=== PATIENT | female | born 1935 | race Caucasian/White ===

== ENCOUNTER 2021-04-09 08:07 | Emergency (ER) | payer MEDICARE, OTHER ==
[~2021-04-09] VITALS: Ht 157.5 cm; Wt 77.1 kg
[~2021-04-09 08:07] MED LIST: ASPI325 PO; ATOR20 PO; LEVOFLOXACIN750 MG PO; Plavix75 MG PO
[2021-04-09 09:59] LABS: Influenza A, PCR NEGATIVE (NEGATIVE); Influenza B, PCR NEGATIVE (NEGATIVE); Resp Syncytial Virus, PCR NEGATIVE (NEGATIVE); SARS-Cov-2 (COVID-19) PCR, MMC NEGATIVE (NEGATIVE)
[2021-04-09 10:20] LABS: Alanine Aminotransfer (ALT/SGP 16 U/L (12-78); Albumin, Blood 3.1 g/dL (3.4-5.0); Albumin/Globulin Ratio 0.9 (0.8-1.8); Alk Phos 70 U/L (50-136); Anion Gap 4 mmol/L (6-16); Aspartate Aminotrans (AST/SGOT 16 U/L (12-37); Bilirubin, Total 0.6 mg/dL (0.1-1.0); Blood Urea Nitrogen 28 mg/dL (8-24); Bun/Creatinine Ratio 32.4 (12.0-20.0); CO2, Blood 27 mmol/L (21-32); Chloride, Blood 112 mmol/L (98-108); Creatinine, Blood 0.86 mg/dL (0.40-1.00); Globulin, Blood 3.3 g/dL (2.2-4.0); Glomerular Filtration Rate >60 (60-); Glucose, Blood 102 mg/dL (70-99); Potassium, Blood 4.1 mmol/L (3.5-5.5); Sodium, Blood 143 mmol/L (136-145); Total Protein, Blood 6.4 g/dL (6.4-8.2); Troponin I <0.015 ng/mL (0.000-0.040)
[2021-04-09 10:28] LABS: BASOPHILS ABSOLUTE AUTO 0.03 K/mm3 (0.00-0.23); BASOPHILS PERCENT AUTO 0 % (0-2); EOSINOPHILS ABSOLUTE AUTO 0.24 K/mm3 (0.00-0.68); EOSINOPHILS PERCENT AUTO 3 % (0-6); Hematocrit 44.6 % (33.0-51.0); Hemoglobin 14.3 g/dL (11.5-16.0); IMMATURE GRAN ABSOLUTE AUTO 0.03 K/mm3 (0.00-0.10); IMMATURE GRAN PERCENT AUTO 0 % (0-1); LYMPHOCYTES ABSOLUTE AUTO 1.06 K/mm3 (0.84-5.20); LYMPHOCYTES PERCENT AUTO 15 % (21-46); MONOCYTES ABSOLUTE AUTO 0.58 K/mm3 (0.16-1.47); MONOCYTES PERCENT AUTO 8 % (4-13); Mean Corpuscular HGB Conc 32.1 g/dL (31.5-36.5); Mean Corpuscular Volume 94 fL (80-100); Mean Platelet Volume 9.6 fL (9.1-12.4); NEUTROPHILS PERCENT AUTO 73 % (41-73); Platelet Count 232 K/mm3 (150-400); RDW Coefficient Variation 13.5 % (11.7-14.2); RDW Standard Deviation 46.3 fL (35.1-46.3); Red Blood Cell Count 4.77 M/mm3 (3.80-5.20); White Blood Cell Count 7.24 K/mm3 (4.00-11.30)
[2021-04-09] MEDS ORDERED: QUET25 PO (10:37)
[2021-04-09] MEDS ORDERED: Q-Tussin100 MG/5 M PO (12:04)
== END 2021-04-09 12:40 | disposition home or self-care (01) ==
LOC: ER 08:07
PROVIDERS: Physician Assistant
DX: J06.9 Acute upper respiratory infection, unspecified (principal); Z20.822 Contact with and (suspected) exposure to COVID-19; Z87.891 Personal history of nicotine dependence; J44.9 Chronic obstructive pulmonary disease, unspecified; Z79.899 Other long term (current) drug therapy
CPT/HCPCS: 0241U; 36415; 71045; 80053; 83605; 84145; 84484; 85025; 93005; 93010; 99284-25; A9270; J7030

== ENCOUNTER 2021-08-27 12:07 | Inpatient (IN) | payer MEDICARE, OTHER ==
[~2021-08-27] VITALS: Ht 152.4 cm; Wt 70.3 kg
[~2021-08-27 12:07] MED LIST changes: -ASPI325 PO; +ASPI81CH PO; +Q-Tussin100 MG/5 M PO; +QUET25 PO
[2021-08-27 13:12] LABS: Influenza A, PCR NEGATIVE (NEGATIVE); Influenza B, PCR NEGATIVE (NEGATIVE); Resp Syncytial Virus, PCR NEGATIVE (NEGATIVE)
[2021-08-27 13:36] LABS: SARS-Cov-2 (COVID-19) PCR, MMC POSITIVE (NEGATIVE)
[2021-08-27 14:13] LABS: BASOPHILS ABSOLUTE AUTO 0.07 K/mm3 (0.00-0.23); BASOPHILS PERCENT AUTO 1 % (0-2); EOSINOPHILS ABSOLUTE AUTO 0.05 K/mm3 (0.00-0.68); EOSINOPHILS PERCENT AUTO 0 % (0-6); Hematocrit 47.1 % (33.0-51.0); Hemoglobin 14.1 g/dL (11.5-16.0); IMMATURE GRAN ABSOLUTE AUTO 0.08 K/mm3 (0.00-0.10); IMMATURE GRAN PERCENT AUTO 1 % (0-1); LYMPHOCYTES ABSOLUTE AUTO 1.07 K/mm3 (0.84-5.20); LYMPHOCYTES PERCENT AUTO 8 % (21-46); MONOCYTES ABSOLUTE AUTO 1.93 K/mm3 (0.16-1.47); MONOCYTES PERCENT AUTO 14 % (4-13); Mean Corpuscular HGB 29.4 pg (26.0-34.0); Mean Corpuscular HGB Conc 29.9 g/dL (31.5-36.5); Mean Corpuscular Volume 98 fL (80-100); Mean Platelet Volume 9.6 fL (9.1-12.4); NEUTROPHILS ABSOLUTE AUTO 11.13 K/mm3 (1.96-9.15); NEUTROPHILS PERCENT AUTO 78 % (41-73); Platelet Count 277 K/mm3 (150-400); RDW Coefficient Variation 13.5 % (11.7-14.2); RDW Standard Deviation 49.7 fL (35.1-46.3); Red Blood Cell Count 4.79 M/mm3 (3.80-5.20); White Blood Cell Count 14.33 K/mm3 (4.00-11.30)
[2021-08-27 14:32] LABS: Albumin/Globulin Ratio 0.7 (0.8-1.8); Bilirubin, Total 0.7 mg/dL (0.1-1.0); Bun/Creatinine Ratio 29.5 (12.0-20.0); Calcium, Blood 9.6 mg/dL (8.5-10.1); Creatinine, Blood 1.22 mg/dL (0.40-1.00); Globulin, Blood 4.5 g/dL (2.2-4.0); Potassium, Blood 4.5 mmol/L (3.5-5.5); Total Protein, Blood 7.5 g/dL (6.4-8.2)
--- NOTE | 2021-08-28 05:44 | NUR ---
PT IS CONFUSED, INCONTINENT T/O SHIFT. 2 ASSIST TO BSC. 2LN/C WHEN AWAKE, 4L VIA N/C WHEN ASLEEP TO MAINTAIN SATS GREATER THAN 90%.BIOX MONITOR.
[2021-08-28 07:58] LABS: BASOPHILS ABSOLUTE AUTO 0.02 K/mm3 (0.00-0.23); BASOPHILS PERCENT AUTO 0 % (0-2); EOSINOPHILS PERCENT AUTO 0 % (0-6); Hematocrit 40.1 % (33.0-51.0); Hemoglobin 12.4 g/dL (11.5-16.0); IMMATURE GRAN ABSOLUTE AUTO 0.04 K/mm3 (0.00-0.10); IMMATURE GRAN PERCENT AUTO 0 % (0-1); LYMPHOCYTES ABSOLUTE AUTO 0.77 K/mm3 (0.84-5.20); LYMPHOCYTES PERCENT AUTO 7 % (21-46); MONOCYTES ABSOLUTE AUTO 0.62 K/mm3 (0.16-1.47); MONOCYTES PERCENT AUTO 6 % (4-13); Mean Corpuscular HGB 29.2 pg (26.0-34.0); Mean Corpuscular HGB Conc 30.9 g/dL (31.5-36.5); Mean Corpuscular Volume 94 fL (80-100); Mean Platelet Volume 9.9 fL (9.1-12.4); NEUTROPHILS ABSOLUTE AUTO 8.94 K/mm3 (1.96-9.15); NEUTROPHILS PERCENT AUTO 86 % (41-73); Platelet Count 278 K/mm3 (150-400); RDW Coefficient Variation 13.2 % (11.7-14.2); RDW Standard Deviation 46.5 fL (35.1-46.3); Red Blood Cell Count 4.25 M/mm3 (3.80-5.20); White Blood Cell Count 10.39 K/mm3 (4.00-11.30)
[2021-08-28 08:21] LABS: Albumin, Blood 2.4 g/dL (3.4-5.0); Albumin/Globulin Ratio 0.6 (0.8-1.8); Bilirubin, Total 0.5 mg/dL (0.1-1.0); Bun/Creatinine Ratio 33.3 (12.0-20.0); Calcium, Blood 9.3 mg/dL (8.5-10.1); Creatinine, Blood 1.05 mg/dL (0.40-1.00); Globulin, Blood 3.9 g/dL (2.2-4.0); Potassium, Blood 5.2 mmol/L (3.5-5.5); Total Protein, Blood 6.3 g/dL (6.4-8.2)
--- NOTE | 2021-08-28 15:26 | NUR ---
Echocardiogram performed by Santana Olivia under my supervision.
--- NOTE | 2021-08-28 18:07 | NUR ---
SHIFT SUMMARY PT ALERT TO SELF, DISORIENTED. PT REMAINS ON 4L NC, SPO2 >92 IN BED, DESATS DURING EXERTION. PT X 1 ASSIST TO BEDSIDE COMMODE, FORMED HARD BM TODAY. 2D ECHO COMPLETED, PENDING RESULTS. PT STILL WITH NON PRODUCTIVE COUGH. NO C/O PAIN. WILL CONTINUE TO MONITOR.
[2021-08-29] MEDS ORDERED: Ventolin/Prove6.7 GM INH (02:50)
--- NOTE | 2021-08-29 05:18 | NUR ---
86 year old PT with covid 19 hypoxia weaned to 2 l nc byt unable to wean to room air. Room air sat 86% shortly after oxygen stopped. Up with assist to BSC for toileting. Incontinent of urnine several times. Needs assist with ADLS. Has DTR who provides care at home . On tele afib 100 .
--- NOTE | 2021-08-29 06:49 | NUR ---
DR updated on loss of IV access & no IV needed order obtained. Continues in afib with pulse in 90s.
[2021-08-29 08:50] LABS: Albumin, Blood 2.4 g/dL (3.4-5.0); Anion Gap 5 mmol/L (6-16); Blood Urea Nitrogen 41 mg/dL (8-24); Bun/Creatinine Ratio 39.8 (12.0-20.0); CO2, Blood 29 mmol/L (21-32); Calcium, Blood 9.2 mg/dL (8.5-10.1); Chloride, Blood 105 mmol/L (98-108); Creatinine, Blood 1.03 mg/dL (0.40-1.00); Glomerular Filtration Rate 53 (60-); Glucose, Blood 103 mg/dL (70-99); Phosphorus, Blood 2.9 mg/dL (2.5-4.9); Potassium, Blood 5.1 mmol/L (3.5-5.5); Sodium, Blood 139 mmol/L (136-145)
--- NOTE | 2021-08-30 03:47 | NUR ---
86 year old Female with covid 19 uses no home oxygen & requires 2 l NC to keep sats greater than 90%. She has bioxx so we can attempt to wean off oxygen & assess if she is tolerating wean. PT has pleasant confusion, needs assist with ADLS & lives with Family. Able to feed self with set up she does not usually use call hendrickson due to dementia. Weak PT is able to transfer to chair or bedside commode. On tele moniotor PT with persistant afib.
--- NOTE | 2021-08-30 05:40 | NUR ---
PT continues to be 86% on room air when oxygen removed while sleeping. Sat 94 % with 2 l oxygen.
[2021-08-30 06:25] LABS: Albumin, Blood 2.2 g/dL (3.4-5.0); Anion Gap 3 mmol/L (6-16); Blood Urea Nitrogen 44 mg/dL (8-24); Bun/Creatinine Ratio 46.2 (12.0-20.0); CO2, Blood 30 mmol/L (21-32); Calcium, Blood 9.1 mg/dL (8.5-10.1); Chloride, Blood 104 mmol/L (98-108); Creatinine, Blood 0.95 mg/dL (0.40-1.00); Glomerular Filtration Rate 59 (60-); Glucose, Blood 114 mg/dL (70-99); Phosphorus, Blood 2.8 mg/dL (2.5-4.9); Potassium, Blood 5.2 mmol/L (3.5-5.5); Sodium, Blood 137 mmol/L (136-145)
--- NOTE | 2021-09-01 05:10 | NUR ---
SHIFT SUMMARY: PT IS A/OX1-2. SHE IS COVID + AND ON 1L OF 02 TO STAY >93%. SHE DOES HAVE A HX OF DEMENTIA AND CAN BE IMPULSIVE, BUT SHE HAS NOT GOT OOB BY HERSELF THIS NOC SHIFT. PER TELE MONITOR: AFIB/117. HER CONT. PULSE OX IS OUTSIDE IN THE HALLWAY (LABELED). SHE IS A POSSIBLE DC HOME W/ DAUGHTER TODAY. BED ALARM IS SET AND WE'LL CONTINUE TO MONITOR.
[2021-09-01] MEDS ORDERED: ELIQUIS5 M2 PO (16:46)
[2021-09-01] MEDS ORDERED: DEXA6 PO (16:47)
[2021-09-01] MEDS ORDERED: GUAI600T33 PO (16:47)
[2021-09-01] MEDS ORDERED: DECADRON6 M1 (16:47)
[2021-09-01] MEDS ORDERED: FLUTICASONE-SA1 EAC1 INH (16:48)
[2021-09-01] MEDS ORDERED: ALBU90OI6 INH (16:48)
--- NOTE | 2021-09-01 18:49 | NUR ---
DISCHARGE PATIENT WAS DISCHARGED TO HOME WITH HOME HEALTH TODAY. SHE HAD AN O2 EVAL COMPLETED BEFORE SHE WAS DISCHARGED. PATIENTS DAUGHTER WAS PRESENT FOR DISCHARGE PAPERWORK, AND SIGNED HER MOM OUT. PATIENT WAS BROUGHT DOWN TO CAR IN A WHEEL CHAIR, WITH MASK IN PLACE, BY ANNABELLA.
== END 2021-09-01 17:30 | disposition home health service (06) | DRG 871 ==
LOC: ER 12:07 → MEDS 17:24
PROVIDERS: Internal Medicine; Physician Assistant; ADMIT Internal Medicine
PROC: 3E0DX3Z Introduction of Anti-inflammatory into Mouth and Pharynx, External Approach (ICD-10-PCS; principal; 2021-08-27)
PROC: 8E0ZXY6 Isolation (ICD-10-PCS; 2021-08-27)
DX: A41.89 Other specified sepsis (principal); U07.1 COVID-19; J96.01 Acute respiratory failure with hypoxia; J12.82 Pneumonia due to coronavirus disease 2019; N17.9 Acute kidney failure, unspecified; J43.9 Emphysema, unspecified; Z66 Do not resuscitate; R65.20 Severe sepsis without septic shock; E86.0 Dehydration; I48.0 Paroxysmal atrial fibrillation; N31.9 Neuromuscular dysfunction of bladder, unspecified; F03.90 Unspecified dementia, unspecified severity, without behavioral disturbance, psychotic disturbance, mood disturbance, and anxiety; Z99.81 Dependence on supplemental oxygen; Z86.73 Personal history of transient ischemic attack (TIA), and cerebral infarction without residual deficits; Z87.891 Personal history of nicotine dependence; Z95.0 Presence of cardiac pacemaker; Z90.49 Acquired absence of other specified parts of digestive tract; Z90.710 Acquired absence of both cervix and uterus; Z79.82 Long term (current) use of aspirin; Z79.899 Other long term (current) drug therapy
CPT/HCPCS: 0241U; 36415; 71045; 80053; 80069; 83880; 84145; 84484; 85025; 93005; 93010; 93306; 94640; 94664; 94760; 94762; 96374; 97110; 97162; 97166; 97530; 97535; 99285-25; A9270; J1650; J7030; M0222

== ENCOUNTER 2021-12-22 10:11 | Emergency (ER) | payer MEDICARE, OTHER ==
[~2021-12-22] VITALS: Ht 157.5 cm; Wt 77.1 kg
[~2021-12-22 10:11] MED LIST changes: -CEPH500 PO
[2021-12-22 10:57] LABS: Source, Urine Fem Cath
[2021-12-22 11:00] LABS: Appearance, Urine Clear (Clear); Bilirubin, Urine Neg (Neg); Blood, Urine 3+ (Neg); Color, Urine Yellow (P-Yellow); Glucose Qualitative, Urine Neg (Neg); Ketones, Urine Neg (Neg); Leukocyte Esterase, Urine 3+ (Neg); Nitrite, Urine Neg (Neg); Protein, Urine 2+ (Neg); Urobilinogen, Urine 1+ (Normal)
[2021-12-22 11:37] LABS: BASOPHILS ABSOLUTE AUTO 0.04 K/mm3 (0.00-0.23); BASOPHILS PERCENT AUTO 1 % (0-2); EOSINOPHILS ABSOLUTE AUTO 0.01 K/mm3 (0.00-0.68); EOSINOPHILS PERCENT AUTO 0 % (0-6); Hematocrit 43.2 % (33.0-51.0); Hemoglobin 12.8 g/dL (11.5-16.0); IMMATURE GRAN ABSOLUTE AUTO 0.03 K/mm3 (0.00-0.10); IMMATURE GRAN PERCENT AUTO 1 % (0-1); LYMPHOCYTES ABSOLUTE AUTO 0.71 K/mm3 (0.84-5.20); LYMPHOCYTES PERCENT AUTO 12 % (21-46); MONOCYTES PERCENT AUTO 12 % (4-13); Mean Corpuscular HGB 28.3 pg (26.0-34.0); Mean Corpuscular HGB Conc 29.6 g/dL (31.5-36.5); Mean Corpuscular Volume 95 fL (80-100); Mean Platelet Volume 10.8 fL (9.1-12.4); NEUTROPHILS ABSOLUTE AUTO 4.26 K/mm3 (1.96-9.15); NEUTROPHILS PERCENT AUTO 74 % (41-73); Platelet Count 166 K/mm3 (150-400); RDW Coefficient Variation 14.6 % (11.7-14.2); RDW Standard Deviation 51.3 fL (35.1-46.3); Red Blood Cell Count 4.53 M/mm3 (3.80-5.20); White Blood Cell Count 5.75 K/mm3 (4.00-11.30)
[2021-12-22 11:46] LABS: Albumin/Globulin Ratio 0.8 (0.8-1.8); Bilirubin, Total 0.8 mg/dL (0.1-1.0); Bun/Creatinine Ratio 28.1 (12.0-20.0); Creatinine, Blood 0.96 mg/dL (0.40-1.00); Potassium, Blood 4.3 mmol/L (3.5-5.5)
[2021-12-22 11:52] LABS: White Blood Cells, Urine TNTC /hpf (0-5)
[2021-12-22 11:53] LABS: Bacteria Many /hpf; Renal Epithelial Few /hpf (0-Rare); Squamous Epithelial Cells Not Seen /hpf (Few)
[2021-12-22] MEDS ORDERED: CEPH500 PO (13:30)
== END 2021-12-22 14:00 | disposition home or self-care (01) ==
LOC: ER 10:11
PROVIDERS: Emergency Medicine
DX: N39.0 Urinary tract infection, site not specified (principal); Z79.899 Other long term (current) drug therapy; J44.9 Chronic obstructive pulmonary disease, unspecified
CPT/HCPCS: 36415; 71045; 80053; 81001; 85025; 87077; 87086; 87186; 93005; 93010; 96365; 99285-25; J0696; P9612

== ENCOUNTER → 2021-12-22 | Outpatient (CLI) | payer MEDICARE, OTHER ==
[~2021-12-22] MED LIST changes: +ALBU90OI6 INH; +CEPH500 PO; +DECADRON6 M1; +DEXA6 PO; +ELIQUIS5 M2 PO; +FLUTICASONE-SA1 EAC1 INH; +GUAI600T33 PO; +Ventolin/Prove6.7 GM INH
== END | disposition home or self-care (01) ==
LOC: LAB SHORT 10:00 → LAB 10:00
DX: R30.0 Dysuria (principal); R31.9 Hematuria, unspecified
CPT/HCPCS: 87077; 87086; 87186

== ENCOUNTER 2022-01-10 11:59 | Emergency (ER) | payer MEDICARE, OTHER ==
[~2022-01-10] VITALS: Ht 157.5 cm; Wt 72.6 kg
[~2022-01-10 11:59] MED LIST changes: +CEPH500 PO
== END 2022-01-10 14:34 | disposition home or self-care (01) ==
LOC: ER 11:59
DX: S09.90XA Unspecified injury of head, initial encounter (principal); W01.190A Fall on same level from slipping, tripping and stumbling with subsequent striking against furniture, initial encounter; J44.9 Chronic obstructive pulmonary disease, unspecified; Z99.81 Dependence on supplemental oxygen; Z79.899 Other long term (current) drug therapy; Z79.01 Long term (current) use of anticoagulants
CPT/HCPCS: 70450; 71046; 94640; 94664

== ENCOUNTER → 2022-03-23 | Outpatient (CLI) | payer MEDICARE, OTHER ==
[2022-03-23 16:56] LABS: Appearance, Urine Hazy (Clear); Bilirubin, Urine Neg (Neg); Blood, Urine 1+ (Neg); Color, Urine Yellow (P-Yellow); Glucose Qualitative, Urine Neg (Neg); Ketones, Urine Neg (Neg); Leukocyte Esterase, Urine 2+ (Neg); Nitrite, Urine Pos (Neg); Protein, Urine 1+ (Neg); Specific Gravity, Urine 1.015 (1.003-1.022); Urobilinogen, Urine NORM (Normal); pH, Urine 6.5 (5.0-8.0)
[2022-03-23 17:16] LABS: Bacteria Many /hpf; Hyaline Casts 0-2 /lpf (0-2); Squamous Epithelial Cells Mod /hpf (Few); Transitional Epithelial Cells Rare /hpf (0-Rare); White Blood Cells, Urine 25-50 /hpf (0-5)
== END | disposition home or self-care (01) ==
LOC: LAB 13:00 → LAB SHORT 13:00
PROVIDERS: Family Medicine
DX: N39.0 Urinary tract infection, site not specified (principal)
CPT/HCPCS: 81001

== ENCOUNTER → 2022-06-15 | Outpatient (CLI) | payer MEDICARE, OTHER ==
[2022-06-15 19:58] LABS: Bilirubin, Urine Neg (Neg); Blood, Urine 1+ (Neg); Glucose Qualitative, Urine Neg (Neg); Ketones, Urine Neg (Neg); Leukocyte Esterase, Urine 3+ (Neg); Nitrite, Urine Pos (Neg); Protein, Urine 1+ (Neg); Specific Gravity, Urine 1.025 (1.003-1.022); Urobilinogen, Urine NORM (Normal)
[2022-06-15 20:05] LABS: Appearance, Urine Hazy (Clear); Color, Urine Yellow (P-Yellow)
[2022-06-15 20:06] LABS: White Blood Cells, Urine TNTC /hpf (0-5)
[2022-06-15 20:07] LABS: Bacteria Many /hpf; Red Blood Cells, Urine 0-2 /hpf (0-2); Squamous Epithelial Cells Few /hpf (Few)
== END | disposition home or self-care (01) ==
LOC: LAB 19:00 → LAB SHORT 19:00
PROVIDERS: Family Medicine
DX: N39.0 Urinary tract infection, site not specified (principal)
CPT/HCPCS: 81001; 87077; 87086; 87186

== ENCOUNTER → 2022-10-16 | Outpatient (CLI) | payer MEDICARE, OTHER ==
[~2022-10-16] MED LIST changes: +ACET325 PO; +ALBU2.5V5 INH; +AMOCLA875 PO; +BUDESONIDE-FO10.2 G2 INH; +CIPR500 PO; +DULCOLAX400 MG/5 M PO; +FAMO20 PO; +FURO20 PO; +LACT PO; +LOPE2C PO; +LOPERAMIDE212 PO; +Magnesium-Alum360 ML PO; +NYAMYC1513 TOP
== END ==
LOC: LAB SHORT 19:27 → LAB 19:27
DX: N39.0 Urinary tract infection, site not specified (principal)
CPT/HCPCS: 87077; 87086; 87186

== ENCOUNTER 2022-10-19 19:40 | Inpatient (IN) | payer MEDICARE, OTHER ==
[~2022-10-19] VITALS: Ht 152.4 cm; Wt 69.3 kg
[~2022-10-19 19:40] MED LIST changes: -ACET325 PO; -ALBU2.5V5 INH; -AMOCLA875 PO; -BUDESONIDE-FO10.2 G2 INH; -CIPR500 PO; -DULCOLAX400 MG/5 M PO; -FAMO20 PO; -FURO20 PO; -LACT PO; -LOPE2C PO; -LOPERAMIDE212 PO; -Magnesium-Alum360 ML PO; -NYAMYC1513 TOP
[2022-10-19 20:52] LABS: Albumin, Blood 2.5 g/dL (3.4-5.0); Albumin/Globulin Ratio 0.6 (0.8-1.8); Bilirubin, Total 0.7 mg/dL (0.1-1.0); Bun/Creatinine Ratio 25.4 (12.0-20.0); Calcium, Blood 8.9 mg/dL (8.5-10.1); Creatinine, Blood 1.34 mg/dL (0.40-1.00); Globulin, Blood 3.9 g/dL (2.2-4.0); Potassium, Blood 3.6 mmol/L (3.5-5.5); Total Protein, Blood 6.4 g/dL (6.4-8.2)
[2022-10-19 21:16] LABS: BASOPHILS ABSOLUTE AUTO 0.03 K/mm3 (0.00-0.23); BASOPHILS PERCENT AUTO 0 % (0-2); EOSINOPHILS ABSOLUTE AUTO 0.35 K/mm3 (0.00-0.68); EOSINOPHILS PERCENT AUTO 5 % (0-6); Hematocrit 35.5 % (33.0-51.0); Hemoglobin 11.2 g/dL (11.5-16.0); IMMATURE GRAN ABSOLUTE AUTO 0.03 K/mm3 (0.00-0.10); IMMATURE GRAN PERCENT AUTO 0 % (0-1); LYMPHOCYTES ABSOLUTE AUTO 0.95 K/mm3 (0.84-5.20); LYMPHOCYTES PERCENT AUTO 13 % (21-46); MONOCYTES ABSOLUTE AUTO 1.04 K/mm3 (0.16-1.47); MONOCYTES PERCENT AUTO 15 % (4-13); Mean Corpuscular HGB Conc 31.5 g/dL (31.5-36.5); Mean Corpuscular Volume 92 fL (80-100); Mean Platelet Volume 10.2 fL (9.1-12.4); NEUTROPHILS ABSOLUTE AUTO 4.76 K/mm3 (1.96-9.15); NEUTROPHILS PERCENT AUTO 67 % (41-73); Platelet Count 252 K/mm3 (150-400); RDW Coefficient Variation 14.8 % (11.7-14.2); RDW Standard Deviation 49.5 fL (35.1-46.3); Red Blood Cell Count 3.86 M/mm3 (3.80-5.20); White Blood Cell Count 7.16 K/mm3 (4.00-11.30)
[2022-10-19 21:24] LABS: D-Dimer, Quantitative 0.59 mg/L FEU (0.00-0.52); International Normalized Ratio 1.14; Prothrombin Time Results 11.9 Sec (9.7-11.5)
[2022-10-20 02:36] VITALS: BP 139/63
--- NOTE | 2022-10-20 06:11 | NUR ---
0200 REPORT FROM [facility] RN- PT BROUGHT TO ROOM VIA [employer]- BRIEF CHANGED, PT ABLE TO ROLL WITH ASSISTANCE, ZITROMYCIN IV SENT UP FROM ED- STARTED IV INFUSION- PT REQUESTED ICE WATER AND TOLERATED WELL- BED LOW POSITION, CALL LIGHT WITHIN REACH, BED ALARM IN PLACE
[2022-10-20 08:04] VITALS: BP 125/60
[2022-10-20] MEDS ORDERED: FURO20 PO (15:54)
[2022-10-20] MEDS ORDERED: CIPR500 PO (15:58)
[2022-10-20] MEDS ORDERED: BUDESONIDE-FO10.2 G2 INH (16:01)
[2022-10-20] MEDS ORDERED: NYAMYC1513 TOP (16:03)
[2022-10-20] MEDS ORDERED: ACET325 PO (16:05)
[2022-10-20] MEDS ORDERED: LOPERAMIDE212 PO (16:08)
[2022-10-20] MEDS ORDERED: DULCOLAX400 MG/5 M PO (16:10)
[2022-10-20] MEDS ORDERED: Magnesium-Alum360 ML PO (16:12)
[2022-10-20 16:21] VITALS: BP 119/79
--- NOTE | 2022-10-20 18:07 | NUR ---
TRANSFER TO SCU AND SHIFT SUMMARY PATIENT TRANSFERED TO SCU AT 1500 PATIENT PLEASANTLY CONFUSED AT BASELINE AND RESIDES AT [facility]. CONFUSION INCREASED AND PATIENT WAS SENT TO THE HOSPITAL. PATIENT TRANSFERED TO SCU BECAUSE OF INCREASED CONFUSION, HALLUCINATIONS AND IMPULSIVE BEHAVIOR. PATIENT CONFUSED BUT COOPERATIVE WITH CARE. NO HALLUCINATIONS NOTED IN SCU. PATIENT UP IN CHAIR FOR REST OF SHIFT. PATIENT NEEDING ASSISTANCE WITH EATING.
[2022-10-20 19:48] VITALS: BP 142/79
--- NOTE | 2022-10-21 03:32 | NUR ---
SHIFT SUMMARY 87 YR F ADMITTED ON 10/20/22 FOR [facility]. FULL CODE. NO ACUTE CHANGES THIS SHIFT. PT IS CONFUSED AND WAS TALKING ABOUT HAVING HER FAMILY GATHER FOR [employer] DINNER. SHE WOULD RANDOMLY CALL OUR FOR PEOPLE AND ASK WHERE THEY WENT, STATING THAT THEY WERE JUST HERE. TRANSFERING HER FROM CHAIR TO BED WAS DIFFICULT SHE IS UNABLE TO BEAR ANY WEIGHT. SHE STATED SHE WAS HAVING PAIN BUT COULD NOT SPECIFY WHERE. SHE WAS MEDICATED PER EMAR AND ONCE SHE WAS TUCKED COMFORTABLY INTO BED SHE FELL ASLEEP AND SLEPT FOR MOST OF THE NIGHT.
[2022-10-21 05:37] VITALS: BP 140/96
[2022-10-21 05:37] LABS: BASOPHILS ABSOLUTE AUTO 0.03 K/mm3 (0.00-0.23); BASOPHILS PERCENT AUTO 0 % (0-2); EOSINOPHILS PERCENT AUTO 6 % (0-6); Hemoglobin 10.6 g/dL (11.5-16.0); IMMATURE GRAN ABSOLUTE AUTO 0.03 K/mm3 (0.00-0.10); IMMATURE GRAN PERCENT AUTO 0 % (0-1); LYMPHOCYTES ABSOLUTE AUTO 1.17 K/mm3 (0.84-5.20); LYMPHOCYTES PERCENT AUTO 14 % (21-46); MONOCYTES ABSOLUTE AUTO 1.02 K/mm3 (0.16-1.47); MONOCYTES PERCENT AUTO 12 % (4-13); Mean Corpuscular HGB 28.6 pg (26.0-34.0); Mean Corpuscular HGB Conc 31.2 g/dL (31.5-36.5); Mean Corpuscular Volume 92 fL (80-100); Mean Platelet Volume 9.4 fL (9.1-12.4); NEUTROPHILS ABSOLUTE AUTO 5.67 K/mm3 (1.96-9.15); NEUTROPHILS PERCENT AUTO 67 % (41-73); Platelet Count 251 K/mm3 (150-400); RDW Coefficient Variation 14.6 % (11.7-14.2); RDW Standard Deviation 49.7 fL (35.1-46.3); White Blood Cell Count 8.42 K/mm3 (4.00-11.30)
[2022-10-21 06:20] LABS: Albumin, Blood 2.2 g/dL (3.4-5.0); Albumin/Globulin Ratio 0.6 (0.8-1.8); Bilirubin, Total 0.5 mg/dL (0.1-1.0); Bun/Creatinine Ratio 29.6 (12.0-20.0); Calcium, Blood 8.5 mg/dL (8.5-10.1); Creatinine, Blood 0.98 mg/dL (0.40-1.00); Globulin, Blood 3.7 g/dL (2.2-4.0); Potassium, Blood 3.6 mmol/L (3.5-5.5); Total Protein, Blood 5.9 g/dL (6.4-8.2)
[2022-10-21 07:54] VITALS: BP 152/79
[2022-10-21 15:24] VITALS: BP 131/63
--- NOTE | 2022-10-21 17:29 | NUR ---
SHIFT SUMMARY PATIENT CONFUSED AND HALLUCINATING AT TIMES. PATIENT SEEING CHILDREN IN HER ROOM AND KEEPS THINKING SHE IS AT HOME AND NEEDS TO PREPARE THE FAMILY MEALS. PATIENT NEEDING 2 PERSON TRANSFER AND A 3RD TO ASSIST WITH PERICARE NEEDED. PATIENT INCONTINENT AT TIMES AND UNAWARE THAT SHE IS INCONTINENT OF STOOL OR URINE. BARRIER CREAM APPLIED TO PERINEAL AND BUTTOCK AREA NEEDED. L HAND IV DC'D BECAUSE OF TENDERNESS. URINE CONTINUES TO HAVE A FOUL ODOR. SKIN CARE PROVIDED TO LOWER LEGS. CHAIR ALARM AND BED ALARM USED FOR SAFETY.
[2022-10-21 19:42] VITALS: BP 122/66
--- NOTE | 2022-10-22 05:53 | NUR ---
SHIFT SUMMARY A/OX2, PLEASANT AND COOPERATIVE WITH CARE. TELE SR 70-80S, DENIES CHEST PAIN/PRESSURE. SPO2 >92% ON BASELINE 3L NC. VSS, NO ACUTE CHANGES AT THIS TIME. BED IN LOWEST POSITION WITH CALL LIGHT IN REACH. WILL CONTINUE TO MONITOR AND REPORT TO ONCOMING RN.
[2022-10-22 06:31] VITALS: BP 144/78
[2022-10-22 07:50] VITALS: BP 136/73
[2022-10-22] MEDS ORDERED: ALBU2.5V5 INH (15:17)
[2022-10-22] MEDS ORDERED: AMOCLA875 PO (15:18)
[2022-10-22] MEDS ORDERED: LACT PO (15:19)
[2022-10-22] MEDS ORDERED: FAMO20 PO (15:19)
[2022-10-22] MEDS ORDERED: LOPE2C PO (15:21)
[2022-10-22 15:29] LABS: SARS-Cov-2 (COVID-19) PCR, MMC NEGATIVE (NEGATIVE)
--- NOTE | 2022-10-22 15:47 | NUR ---
discharge home PT discharged back to [facility]. Daughter picked herup. Orders faxed to [facility] ahead of dischrge. Covid test results negative. Iv removed this morning. Continue POC.
== END 2022-10-22 15:45 | disposition home health service (06) | DRG 177 ==
LOC: ER 19:40 → MEDS 19:41
PROVIDERS: Emergency Medicine; Family Medicine; Hospitalist; ADMIT Internal Medicine
DX: J69.0 Pneumonitis due to inhalation of food and vomit (principal); J96.21 Acute and chronic respiratory failure with hypoxia; N17.9 Acute kidney failure, unspecified; I48.20 Chronic atrial fibrillation, unspecified; Z20.822 Contact with and (suspected) exposure to COVID-19; J44.9 Chronic obstructive pulmonary disease, unspecified; F03.90 Unspecified dementia, unspecified severity, without behavioral disturbance, psychotic disturbance, mood disturbance, and anxiety; D64.9 Anemia, unspecified; N31.9 Neuromuscular dysfunction of bladder, unspecified; R79.89 Other specified abnormal findings of blood chemistry; Z95.0 Presence of cardiac pacemaker; Z99.81 Dependence on supplemental oxygen; Z79.01 Long term (current) use of anticoagulants; Z79.899 Other long term (current) drug therapy; Z86.73 Personal history of transient ischemic attack (TIA), and cerebral infarction without residual deficits; Z90.89 Acquired absence of other organs; Z90.710 Acquired absence of both cervix and uterus; Z87.891 Personal history of nicotine dependence
CPT/HCPCS: 36415; 71045; 71260; 80053; 84145; 84484; 85025; 85379; 85610; 85730; 92610; 93005; 93010; 94640; 94664; 94760; 96365-59; 96375-59; 97110; 97162; 97166; 97530; 97535; 99285-25; A9270; J0456; J0696; J7030; J7050; Q9967; U0002

== ENCOUNTER → 2023-03-01 | Outpatient (CLI) | payer MEDICARE, OTHER ==
[~2023-03-01] MED LIST changes: +ACET325 PO; +ALBU2.5V5 INH; +AMOCLA875 PO; +BUDESONIDE-FO10.2 G2 INH; +CIPR500 PO; +DULCOLAX400 MG/5 M PO; +FAMO20 PO; +FURO20 PO; +LACT PO; +LOPE2C PO; +LOPERAMIDE212 PO; +Magnesium-Alum360 ML PO; +NYAMYC1513 TOP
[2023-03-01 17:08] LABS: Source, Urine Voided
[2023-03-01 19:32] LABS: Appearance, Urine Cloudy (Clear); Bilirubin, Urine Neg (Neg); Blood, Urine 5+ (Neg); Color, Urine Yellow (P-Yellow); Glucose Qualitative, Urine Neg (Neg); Ketones, Urine Neg (Neg); Leukocyte Esterase, Urine 3+ (Neg); Nitrite, Urine Pos (Neg); Protein, Urine 2+ (Neg); Urobilinogen, Urine NORM (Normal)
[2023-03-01 20:17] LABS: Bacteria Many /hpf; Red Blood Cells, Urine TNTC /hpf (0-2); Squamous Epithelial Cells Few /hpf (Few); White Blood Cells, Urine TNTC /hpf (0-5)
== END ==
LOC: LAB 17:07 → LAB SHORT 17:07
PROVIDERS: Family Medicine
DX: N39.0 Urinary tract infection, site not specified (principal)
CPT/HCPCS: 81001; 87077; 87086; 87186

== ENCOUNTER → 2023-04-10 | Outpatient (CLI) | payer MEDICARE, OTHER ==
[2023-04-10 18:25] LABS: Source, Urine Clean Catch
[2023-04-10 18:42] LABS: Appearance, Urine Hazy (Clear); Bilirubin, Urine Neg (Neg); Blood, Urine 1+ (Neg); Color, Urine Yellow (P-Yellow); Glucose Qualitative, Urine Neg (Neg); Ketones, Urine Neg (Neg); Leukocyte Esterase, Urine 3+ (Neg); Nitrite, Urine Neg (Neg); Protein, Urine 1+ (Neg); Urobilinogen, Urine 1+ (Normal)
[2023-04-10 18:49] LABS: Amorphous Light (0-Heavy); Bacteria Many /hpf; Renal Epithelial Rare /hpf (0-Rare); Squamous Epithelial Cells Few /hpf (Few); Transitional Epithelial Cells Rare /hpf (0-Rare); White Blood Cells, Urine 50-100 /hpf (0-5)
== END | disposition home or self-care (01) ==
LOC: LAB SHORT 18:23
PROVIDERS: Internal Medicine
DX: N39.0 Urinary tract infection, site not specified (principal)
CPT/HCPCS: 81001; 87077; 87086; 87186

== ENCOUNTER → 2023-06-19 | Outpatient (CLI) | payer OTHER ==
[2023-06-19 17:35] LABS: BASOPHILS ABSOLUTE AUTO 0.05 K/mm3 (0.00-0.23); BASOPHILS PERCENT AUTO 1 % (0-2); EOSINOPHILS ABSOLUTE AUTO 0.33 K/mm3 (0.00-0.68); EOSINOPHILS PERCENT AUTO 4 % (0-6); Hemoglobin 11.4 g/dL (11.5-16.0); IMMATURE GRAN ABSOLUTE AUTO 0.02 K/mm3 (0.00-0.10); IMMATURE GRAN PERCENT AUTO 0 % (0-1); LYMPHOCYTES ABSOLUTE AUTO 1.08 K/mm3 (0.84-5.20); LYMPHOCYTES PERCENT AUTO 14 % (21-46); MONOCYTES ABSOLUTE AUTO 0.82 K/mm3 (0.16-1.47); MONOCYTES PERCENT AUTO 10 % (4-13); Mean Corpuscular HGB Conc 31.7 g/dL (31.5-36.5); Mean Corpuscular Volume 92 fL (80-100); Mean Platelet Volume 10.1 fL (9.1-12.4); NEUTROPHILS ABSOLUTE AUTO 5.71 K/mm3 (1.96-9.15); NEUTROPHILS PERCENT AUTO 71 % (41-73); Platelet Count 284 K/mm3 (150-400); RDW Coefficient Variation 14.6 % (11.7-14.2); RDW Standard Deviation 49.2 fL (35.1-46.3); Red Blood Cell Count 3.93 M/mm3 (3.80-5.20); White Blood Cell Count 8.01 K/mm3 (4.00-11.30)
[2023-06-20 00:40] LABS: Albumin, Blood 2.7 g/dL (3.4-5.0); Albumin/Globulin Ratio 0.7 (0.8-1.8); Bilirubin, Total 0.4 mg/dL (0.1-1.0); Bun/Creatinine Ratio 15.5 (12.0-20.0); Calcium, Blood 8.9 mg/dL (8.5-10.1); Creatinine, Blood 1.03 mg/dL (0.40-1.00); Globulin, Blood 3.8 g/dL (2.2-4.0); Potassium, Blood 4.4 mmol/L (3.5-5.5); Total Protein, Blood 6.5 g/dL (6.4-8.2)
== END | disposition home or self-care (01) ==
LOC: LAB SHORT 16:33
PROVIDERS: Family Medicine
DX: I10 Essential (primary) hypertension (principal)
CPT/HCPCS: 80053; 85025

== ENCOUNTER 2023-10-01 09:07 | Emergency (ER) | payer OTHER ==
[~2023-10-01] VITALS: Ht 160 cm; Wt 70.3 kg
[2023-10-01] MEDS ORDERED: Acetaminophen 325 MG TABLET PO ONE (09:30)
[2023-10-01 10:53] LABS: Influenza A, PCR NEGATIVE (NEGATIVE); Influenza B, PCR NEGATIVE (NEGATIVE); Resp Syncytial Virus, PCR NEGATIVE (NEGATIVE); SARS-Cov-2 (COVID-19) PCR, MMC NEGATIVE (NEGATIVE)
[2023-10-01] MEDS ORDERED: Doxycycline Hyclate 100 MG in Dextrose 5% 250 ML IV ONE (11:10)
[2023-10-01] MEDS ORDERED: CefTRIAXone Sodium 1,000 MG in NS 50 ML IV ONE (11:10)
[2023-10-01 11:31] LABS: BASOPHILS ABSOLUTE AUTO 0.02 K/mm3 (0.00-0.23); BASOPHILS PERCENT AUTO 0 % (0-2); EOSINOPHILS ABSOLUTE AUTO 0.02 K/mm3 (0.00-0.68); EOSINOPHILS PERCENT AUTO 0 % (0-6); Hematocrit 33.7 % (33.0-51.0); Hemoglobin 10.8 g/dL (11.5-16.0); IMMATURE GRAN ABSOLUTE AUTO 0.02 K/mm3 (0.00-0.10); IMMATURE GRAN PERCENT AUTO 0 % (0-1); LYMPHOCYTES ABSOLUTE AUTO 0.57 K/mm3 (0.84-5.20); LYMPHOCYTES PERCENT AUTO 11 % (21-46); MONOCYTES ABSOLUTE AUTO 0.59 K/mm3 (0.16-1.47); MONOCYTES PERCENT AUTO 12 % (4-13); Mean Corpuscular HGB 29.5 pg (26.0-34.0); Mean Corpuscular Volume 92 fL (80-100); Mean Platelet Volume 9.6 fL (9.1-12.4); NEUTROPHILS ABSOLUTE AUTO 3.79 K/mm3 (1.96-9.15); NEUTROPHILS PERCENT AUTO 76 % (41-73); Platelet Count 197 K/mm3 (150-400); RDW Coefficient Variation 14.6 % (11.7-14.2); RDW Standard Deviation 49.7 fL (35.1-46.3); Red Blood Cell Count 3.66 M/mm3 (3.80-5.20); White Blood Cell Count 5.01 K/mm3 (4.00-11.30)
[2023-10-01 11:33] LABS: Albumin, Blood 2.6 g/dL (3.4-5.0); Albumin/Globulin Ratio 0.7 (0.8-1.8); Bilirubin, Total 0.8 mg/dL (0.1-1.0); Calcium, Blood 8.4 mg/dL (8.5-10.1); Globulin, Blood 3.6 g/dL (2.2-4.0); Potassium, Blood 4.4 mmol/L (3.5-5.5); Total Protein, Blood 6.2 g/dL (6.4-8.2)
[2023-10-01] MEDS ORDERED: AMOCLA875 PO (11:59)
[2023-10-01] MEDS ORDERED: DOXY100 PO (11:59)
[2023-10-01 12:00] VITALS: BP 126/74
[2023-10-02] MEDS ORDERED: ALUM-MAG HYDROX30 M1 PO (11:36)
[2023-10-02] MEDS ORDERED: BISA10S PR (11:37)
[2023-10-02] MEDS ORDERED: DEXT30SU PO (11:38)
[2023-10-02] MEDS ORDERED: HYOS.125 SL (11:40)
[2023-10-02] MEDS ORDERED: IPRAT-ALBUT 0.5-3 ML INH (11:41)
[2023-10-02] MEDS ORDERED: LORA.5 PO (11:42)
[2023-10-02] MEDS ORDERED: MORP20L SL (11:44)
[2023-10-02] MEDS ORDERED: NITR100CA PO (11:45)
[2023-10-02] MEDS ORDERED: NYSTATIN15 GM TOP (11:45)
[2023-10-02] MEDS ORDERED: ONDA4ODT MM (11:46)
[2023-10-02] MEDS ORDERED: DESITIN DAILY136 GM TOP (11:50)
[2023-10-02] MEDS ORDERED: ACET120S PR (11:52)
[2023-10-04] MEDS ORDERED: VISBIOME 112.51 EACH PO (11:30)
[2023-10-04] MEDS ORDERED: CEFP50SU PO (11:31)
[2023-10-04] MEDS ORDERED: AZIT200SU PO (11:31)
== END 2023-10-01 17:00 ==
LOC: ER 09:07
PROVIDERS: Student in an Organized Health Care Education/Training Program
DX: J18.9 Pneumonia, unspecified organism (principal); J43.9 Emphysema, unspecified; F03.90 Unspecified dementia, unspecified severity, without behavioral disturbance, psychotic disturbance, mood disturbance, and anxiety; Z86.73 Personal history of transient ischemic attack (TIA), and cerebral infarction without residual deficits; Z95.0 Presence of cardiac pacemaker; Z87.891 Personal history of nicotine dependence; Z11.52 Encounter for screening for COVID-19; Z79.01 Long term (current) use of anticoagulants; Z79.899 Other long term (current) drug therapy
CPT/HCPCS: 0241U; 71046; 80053; 85025; 96365; 96375; 99285-25; A9270; J0696; J7060